=== PATIENT | female | born 1955 | race Caucasian/White ===

== ENCOUNTER → 2016-11-25 | Outpatient (CLI) | payer OTHER | END | disposition home or self-care (01) | LOC: KCIC MAMMO 15:16 | PROVIDERS: ATTEND Family Medicine | DX: Z12.31 Encounter for screening mammogram for malignant neoplasm of breast (principal) | CPT/HCPCS: 77063; G0202; 77067 ==

== ENCOUNTER → 2019-01-08 | Outpatient (CLI) | payer OTHER ==
--- NOTE | 2019-01-08 12:18 | KCIC ---
EXAM: Bilateral digital screening mammogram with tomosynthesis. HISTORY: 63-year-old female presents for screening mammography. TECHNIQUE: Full-field digital craniocaudal and mediolateral oblique 2D and 3D tomosynthesis images of both breasts are obtained for evaluation. Computer aided detection with [employer]er[employer] software version 9.3 was applied. COMPARISON: 01/02/2018 BREAST PARENCHYMAL DENSITY: Level B - Scattered fibroglandular densities. FINDINGS: There is no new suspicious mass, microcalcification or region of architectural distortion. There is stable areas of nodularity and asymmetry within both breasts. There are few punctate benign calcifications. IMPRESSION: BI-RADS Category 2: Benign finding(s). RECOMMENDATION: Annual mammography is recommended. If your mammogram demonstrates that you have dense breast tissue, which could hide abnormalities, and if you have other risk factors for breast cancer that have been identified, you might benefit from supplemental screening tests that may be suggested by your ordering physician. Dense breast tissue, in and of itself, is a relatively common condition. This information is not provided to cause undue concern, but rather to raise your awareness and to promote discussion with your physician regarding the presence of other risk factors, in addition to dense breast tissue. A report of your mammography results will be sent to you and your physician. You should contact your physician if you have any questions or concerns regarding this report. Mammography is a sensitive method for finding small breast cancers, but it does not detect them all and is not a substitute for careful clinical examination. A negative mammogram does not negate a clinically suspicious finding and should not result in delay in biopsying a clinically suspicious abnormality. PQRS compliance statement - Patient information was entered into a reminder system with a target due date for the next mammogram. "Our facility is accredited by the [employer] Mamm[employer]." Electronically signed by: Ayana Boston MD (01/08/2019 12:15 PM) [id number]
== END | disposition home or self-care (01) ==
LOC: KCIC MAMMO 10:46
PROVIDERS: ATTEND Family Medicine
DX: Z12.31 Encounter for screening mammogram for malignant neoplasm of breast (principal); N64.89 Other specified disorders of breast
CPT/HCPCS: 77063; 77067

== ENCOUNTER → 2020-02-03 | Outpatient (CLI) | payer OTHER ==
--- NOTE | 2020-02-03 16:25 | KCIC ---
Bilateral digital screening mammograms with 3-D tomosynthesis: Reason for examination: Routine screening. Comparison is made to previous studies dated back to 01/25/2015. Bilateral mammograms in CC and oblique projections were obtained with 2-D imaging and 3-D tomosynthesis imaging on a Siemens Inspiration unit and reviewed on the workstation. Interpretation was made with the benefit of CAD. The skin and nipples show no abnormalities. No abnormal axillary lymph nodes are seen. The breast parenchyma shows scattered fatty and fibroglandular density. (Breast density: Category B.) There appear to be small new nodular parenchymal densities in the anterior 12:00 retroareolar position of the right breast and in the 2:00 B position of the left breast. Further evaluation with ultrasound is recommended. There are no other dominant masses, suspicious calcifications or architectural distortion. Impression: Small circumscribed nodular densities bilaterally. These may represent cysts but recommend further evaluation with ultrasound. BI-RADS Category 0: Incomplete. Needs additional imaging evaluation. "Our facility is accredited by the [employer]amm[employer]." This patient's information has been entered into a reminder system for the patient to be notified with the results of her examination and a target date for the next mammogram. Electronically signed by: Caprice Anderson MD (02/03/2020 4:22 PM) [id number]
== END ==
LOC: KCIC MAMMO 10:47
PROVIDERS: ATTEND Family Medicine
DX: Z12.31 Encounter for screening mammogram for malignant neoplasm of breast (principal); N63.12 Unspecified lump in the right breast, upper inner quadrant; N63.21 Unspecified lump in the left breast, upper outer quadrant
CPT/HCPCS: 77063; 77067

== ENCOUNTER → 2020-02-11 | Outpatient (CLI) | payer OTHER ==
--- NOTE | 2020-02-11 12:12 | RAD ---
Examination: 1. Limited right breast ultrasound. 2. Limited left breast ultrasound. INDICATION: Screening recall for bilateral breast nodules. COMPARISON: Mammograms of 02/03/2020, 01/08/2019 and 01/02/2018. TECHNIQUE: Grayscale ultrasound imaging of the bilateral breasts in the areas of mammographic interest including color Doppler imaging was performed and including the axilla and subareolar breasts. FINDINGS: Targeted ultrasound of the right breast in the areas of mammographic interest revealed no discrete sonographic mass in the 12:00 retroareolar position with tiny subareolar collapsed cysts measuring up to 3 mm long that could reflect the mammographic finding recalled from screening. These are considered probably benign and are recommended for short-term follow-up with mammography, where they are better seen. A small cluster of calcifications in the lateral middle third right breast have not significantly changed from 2018 and are considered benign but could also be assessed by mammography on short-term follow-up also. Targeted ultrasound of the left breast identified is a 3 mm oval parallel orientation mass with indistinct margins at the 2:00 position 6 cm from nipple, containing low-level internal echoes and no internal vascularity. This is considered probably benign and recommended for six-month follow-up targeted left breast ultrasound. Discussed with patient. She related that she has an extensive paternal family history of breast cancer, and that her sister of the same parents from breast cancer in her 30s. IMPRESSION: Probably benign findings in both breasts. Recommend six-month follow-up right diagnostic mammogram and six-month follow-up targeted left breast ultrasound. Discussed with patient. BI-RADS Category 3 Probably benign findings Patient entered into a reminder system with targeted due date for next mammogram. Electronically signed by: Enrique Reynaga MD (02/11/2020 12:09 PM) [id number]
== END ==
LOC: US 10:25
PROVIDERS: ATTEND Family Medicine
DX: R92.8 Other abnormal and inconclusive findings on diagnostic imaging of breast (principal); N63.21 Unspecified lump in the left breast, upper outer quadrant; N60.01 Solitary cyst of right breast
CPT/HCPCS: 76641-50

== ENCOUNTER → 2020-08-10 | Outpatient (CLI) | payer OTHER ==
--- NOTE | 2020-08-11 12:42 | RAD ---
DATE: 08/10/2020 EXAM: MAMMO NOLBERTO DIAG RT, BREAST BILATERAL HISTORY: Six-month follow-up of bilateral breast nodules COMPARISON: 02/11/2020, 02/03/2020 This study was interpreted with the benefit of Computerized Aided Detection (CAD). Breast Density: SCATTERED The breast parenchyma shows scattered fibroglandular densities. Breast parenchyma level B. FINDINGS: Right breast mammogram: No suspicious mass, calcification, or architectural distortion in the right breast. Right breast ultrasound: Normal fibroglandular tissue in the retroareolar region. There are abnormal enlarged echogenic lymph nodes in the right axilla. These appear new from the prior exam. The largest measures 2.8 x 1.1 another measures cm. Left breast ultrasound: At 2:00, 6 cm the nipple, the 5 x 3 x 3 mm hypoechoic mass with indistinct margins is unchanged. This has some posterior acoustic enhancement. No vascularity. There is an enlarged abnormal echogenic lymph node in the left axilla measuring 1.9 x 1.2 cm. IMPRESSION: Suspicious left breast mass at 2:00 6 cm from the nipple and abnormal axillary lymph nodes bilaterally. Recommend ultrasound-guided biopsy of the left breast mass and left axillary lymph node. This was discussed by Dr. Mandel with the patient, who is in agreement with the plan. BI-RADS CATEGORY: 4 SUSPICIOUS ABNORMALITY- BIOPSY SHOULD BE CONSIDERED RECOMMENDED FOLLOW-UP: BIO BIOPSY RECOMMENDED PQRS compliance statement: Patient information was entered into a reminder system with a target due date for the next mammogram. Mammography is a sensitive method for finding small breast cancers, but it does not detect them all and is not a substitute for careful clinical examination. A negative mammogram does not negate a clinically suspicious finding and should not result in delay in biopsying a clinically suspicious abnormality. "Our facility is accredited by the [employer] Mammography [employer]."
== END ==
LOC: MAMMO 10:04
PROVIDERS: ATTEND Family Medicine
DX: R92.2 Inconclusive mammogram (principal)
CPT/HCPCS: 76641; 77065; G0279; 77061